=== PATIENT | female | born 1995 | race Caucasian/White ===

== ENCOUNTER → 2017-11-06 18:00 | Emergency (ER) | payer SELFPAY ==
[~2017-11-06 18:00] MED LIST: Etomidate* 2 MG/ML 10 ML VIAL IV ONE; NS 0.9% 1000 ML* 2,000 ML IV SCH; Piperacillin/Tazobac (*) 3.375 GM BAG ONE; Piperacillin/Tazobac ADVAN(*) 3.375 GM in NS 0.9% 100 ML* 100 ML IVPB ONE; Propofol* 500 MG/50 ML BTL IV SCH; Rocuronium* 10 MG/ML VIAL IV ONE
[2017-11-06 18:33] LABS: Hematocrit 43 % (35-47); Hemoglobin 14.1 g/dl (12.0-16.0); Mean Corpuscular HGB Conc 33 g/dl (31-36); Mean Corpuscular Hemoglobin 27 pg (27-31); Mean Corpuscular Volume 82 fL (80-97); Mean Platelet Volume 7.2 um3 (7.4-10.4); Platelet Count 515 10^3/ul (150-450); Red Blood Count 5.24 10^6/ul (4.00-5.40); Red Cell Distribution Width 14 % (10.5-15); White Blood Count 24.4 10^3/ul (3.5-10.8)
--- NOTE | 2017-11-06 18:51 | RAD ---
INDICATION: Chest injury. COMPARISON: February 27, 2016 TECHNIQUE: An AP portable view obtained at 1830 hours is submitted. FINDINGS: Bones/Soft Tissues: There are no acute bony findings. There is an endotracheal tube in satisfactory position 3 cm above the giovanna. A nasogastric tube passes normally through the mediastinum. Cardiomediastinal: The cardiomediastinal silhouette is normal. Lungs: There is infiltrate in the medial right upper lobe. There may be a tiny right apical pneumothorax. There is a small amount of subcutaneous emphysema in the right neck. Pleura: There are no pleural effusions. Other: None IMPRESSION: ENDOTRACHEAL TUBE IN PROPER POSITION. INFILTRATE MEDIAL RIGHT UPPER LOBE. SUSPECT TINY PNEUMOTHORAX AND TRACE RIGHT-SIDED SUBCUTANEOUS EMPHYSEMA.
--- NOTE | 2017-11-06 18:51 | ED ---
Progress - Progress Note Progress Note: 22 Y.O. W. F. who reportedly fell approximately 20 feet onto concrete hitting her head. EMS found her poorly responsive and were unable to intubate her secondary to clamping down. She is brought to the emergency department breathing on her own but not keeping her pulse ox above 90%, slightly hypertensive and moving all extremities. Because of the possible head trauma she was given etomidate and rocuronium for intubation. Course/Dx - Course Course Of Treatment: Ms. Khalil had her c-collar removed and I held in-line stabilization during 2 attempts of intubation by Dr. Basilio. The patient's pulse ox dropped each time but was successful and easily bagged back up in between. I was asked to make an attempt and using the glidescope, I was able to intubate with a 7.5 ET tube. She had good color change good breath sounds bilaterally and portable chest showed the tube in good position, however, there is some consolidation in the right upper lobe which may represent an aspiration. - Diagnoses Provider Diagnoses: Required emergency intubation Discharge - Sign-Out/Discharge Documenting (check all that apply): Sign-Out Patient Signing out patient TO: Yeni Izaguirre - Discharge Plan Condition: Guarded Referrals: No Primary Care Phys,NOPCP [Primary Care Provider] - - Billing Disposition and Condition Condition: GUARDED
[2017-11-06 18:52] LABS: EGFR Non-African American 97.5 (>60)
--- NOTE | 2017-11-06 18:57 | ED ---
Vance Jauregui Simon, scribed for Yeni Izaguirre MD on 11/06/17 at 1822 . Adult Trauma - HPI Summary HPI Summary: This patient is a 22 year old F presenting to [facility] with a chief complaint of head trauma since this afternoon. Per EMS Pt fell 16 feet headfirst, backwards, out of a window onto a 3- step set of concrete stairs. Upon arrival in ED, Pt breathing spontaneously,moving all extremities, IO L lower leg, tachycardia 114-118 sinus arrhythmia in ambulance. Per EMS O2 sat in 80s upon EMS arrival, into 90s in ambulance with bagging. EMS unable to intubate prior to arrival due to clenched teeth. Etomidate 20 mg IO, bag valve mask upon arrival. 1803 verbally responding, groaning, intubation at 1804, rocuronium 40 mg 1804,. O2 sat 96 at 1805, Dr. Whitehead maintaining neck stabilization, 18 gauge right AC 1806. Sat 89 1807, 76 1807, bagging at 1807, back to 95 s/p bagging, intubation attempt 1810. bradycardic at 55 BPM, o2 sat 77, down to 56 before restoring post bagging 181. 181 o2 sat 91, BP 162/118. 181 16 velazquez catheter placed, pt was incontinent. Intubation successful [address] Whitehead, 23 at the lip, color change with capnographer. - History of Current Complaint Stated Complaint: FALL Hx Obtained From: EMS ?: No - unknown, unconscious Mechanism of Injury: Fall - 16 feet onto head onto concrete stairs Ambulatory at the Scene: No Loss of Consciousness: still comatose - groans only Onset/Duration: Started Minutes Ago Onset Severity: Severe Current Severity: Severe Location: Head, Neck, Extremities - RLE Alleviating Factor(s): Nothing Associated Signs & Symptoms: Positive: Loss of Consciousness Related History: Alcohol Abuse - odor sim to ETOH noted while intubating - Allergy/Home Medications Allergies/Adverse Reactions: Allergies Allergy/AdvReac Type Severity Reaction Status Date / Time Unable to Assess Allergy Verified 11/06/17 18:37 PMH/Surg Hx/FS Hx/Imm Hx Previously Healthy: No - Unknown, no family or friends for hx; pt comatose; level 5 caveat - Surgical History Surgery Procedure, Year, and Place: unknown, level 5 caveat Infectious Disease History: Unable to Obtain/Confirm Infectious Disease History: Denies: Traveled Outside the [place] in Last 30 Days - Family History Known Family History: Positive: Unknown - level 5 caveat - Social History Alcohol Use: noted Hx Substance Use: No - unknown Smoking Status (MU): Unknown if Ever Smoked Review of Systems - ROS Summary Review of Systems Summary: Level 5 caveat due to trauma and loss of consiousness Constitutional: Other - trauma All Other Systems Reviewed And Are Negative: No Physical Exam Triage Information Reviewed: Yes Vital Signs Reviewed: Yes Appearance: Positive: Ill-Appearing, Signs of Trauma Skin: Positive: Warm, Diaphoretic, Other - no Richmond's sign, ecchymosis left orbit Head/Face: Positive: Other - left orbit ecchymosis Eyes: Positive: Other: - abnormal 5mm left, 4mm right reactive ENT: Positive: Normal ENT inspection, Other - no hemotympanum Neck: Positive: Other: - trachea midline, collar replaced after in line stabilization of neck for intubation, no crepitus, swelling or sign of trauma Respiratory/Lung Sounds: Positive: Breath Sounds Present - bilaterally. Negative: Tracheal Deviation Cardiovascular: Positive: RRR, Tachycardia. Negative: Murmur, Rub Abdomen Description: Positive: Soft. Negative: Distended, Guarding, Pulsatile Mass Bowel Sounds: Positive: Present Pelvic Exam: Positive: Other - stable with compression Musculoskeletal: Positive: Other - trauma right lower extrem, abrasions, deformity Neurological: Positive: Other - moves all extrem, responded to voice with expletive on arrival then intubated, gaze preference to left, unequal pupils, no posturing, facial symmetry Psychiatric: Positive: Other - unable to assess - [place] Coma Scale Best Eye Response: 4 - Spontaneous Best Motor Response: 4 - Withdraws Best Verbal Response: 2 - Incomprehensible Words Coma Scale Total: 10 Diagnostics - Laboratory Lab Results: Lab Results 11/06/17 Range/Units 18:25 Patient Temperature Not Reportable ABG pH Pending ABG pH (Temp Correct) Pending ABG pCO2 Pending ABG pCO2 (Temp Corrct Pending ABG pO2 Pending ABG pO2 (Temp Correct Pending ABG HCO3 Pending ABG O2 Saturation Pending ABG Base Excess Pending Respiration Rate Not Reportable Ventilator Type Not Reportable Vent Mode Not Reportable FiO2 100 Inspiratory Time Not Reportable PEEP Not Reportable Pressure Support Not Reportable Pressure Control Not Reportable EPAP Not Reportable IPAP Not Reportable BiPAP Not Reportable Result Diagrams: 11/06/17 18:15 11/06/17 18:15 Lab Statement: Any lab studies that have been ordered have been reviewed, and results considered in the medical decision making process. Re-Evaluation - Re-Evaluation First Eval Re-Evaluation Time: 18:35 Comment: left pupil is 3-4 mm and reactive, right pupil is 4-5mm and not reactive. Gaze is midline. Second Eval Re-Evaluation Time: 18:45 Comment: proprofol initiated Adult Trauma Course/Dx - Course Course Of Treatment: Pt intubated upon arrival. propofol drip for sedation. CXR shows RUL infiltrate, possible aspiration, zosyn 3.375g given. helicopter transport, Dr. Gomez Archbold - [facility] accepts - Diagnoses Provider Diagnoses: Required emergency intubation Discharge - Sign-Out/Discharge Documenting (check all that apply): Discharge/Admit/Transfer - transfre - Discharge Plan Condition: Critical Disposition: TRANS HIGHER LVL OF CARE FAC - Billing Disposition and Condition Condition: CRITICAL Disposition: Trans Higher Lvl of Care Fac The documentation as recorded by the Vance bermudez Simon accurately reflects the service I personally performed and the decisions made by , Yeni Izaguirre MD.
[2017-11-06 19:06] LABS: Urine Appearance Clear; Urine Blood 1+ (Negative); Urine Color Yellow; Urine Ketones Negative (Negative); Urine Protein Negative (Negative); Urine Specific Gravity 1.008 (1.010-1.030); Urine Urobilinogen Negative (Negative)
[2017-11-06 19:07] LABS: INR 0.92 (0.77-1.02)
[2017-11-06 19:08] LABS: ABS Basophils 0 10^3/ul (0-0.2); ABS Eosinophils 0.1 10^3/ul (0-0.6); ABS Lymphocytes 9.6 10^3/ul (1.0-4.8); ABS Monocytes 1.7 10^3/ul (0-0.8); ABS Nucleated RBC 0 10^3/ul; Eosinophil % 0.5 % (0-6); Lymphocyte % 39.3 % (25-47); Nucleated Red Blood Cells % 0.1
[2017-11-06 19:15] VITALS: BP 138/83
== END | disposition short-term general hospital (02) ==
LOC: ED 18:00
DX: S06.9X9A Unspecified intracranial injury with loss of consciousness of unspecified duration, initial encounter (principal); W17.89XA Other fall from one level to another, initial encounter; Y93.9 Activity, unspecified; Y92.9 Unspecified place or not applicable; F10.10 Alcohol abuse, uncomplicated; E87.2 Acidosis; D72.829 Elevated white blood cell count, unspecified; J69.0 Pneumonitis due to inhalation of food and vomit; R00.0 Tachycardia, unspecified
CPT/HCPCS: 31500; 36415; 51702; 71045; 80053; 80307; 80320; 81003; 81015; 82150; 82550; 82803; 83605; 83690; 84484; 84702; 85025; 85060; 85610; 86850; 86900; 86901; 87086; 93005; 96365; 96374; 96375; 99285; G0480; J2543